=== PATIENT | male | born 1960 | race Caucasian/White ===

== ENCOUNTER → 2024-09-07 15:55 | Outpatient (BNVA) | payer MEDICARE, OTHER, SELFPAY | PROVIDERS: Visit Provider Podiatrist Foot & Ankle Surgery | DX: E11.69 Type 2 diabetes mellitus with other specified complication (principal); L60.0 Ingrowing nail | CPT/HCPCS: 11750; 99203; A6219 ==

== ENCOUNTER → 2024-09-21 15:44 | Outpatient (BNVA) | payer MEDICARE, OTHER, SELFPAY | PROVIDERS: Visit Provider Podiatrist Foot & Ankle Surgery | DX: L60.0 Ingrowing nail (principal); E11.69 Type 2 diabetes mellitus with other specified complication | CPT/HCPCS: 99213 ==

== ENCOUNTER 2024-10-11 10:52 | Outpatient (CLI) | payer MEDICARE, OTHER, SELFPAY | END 2024-10-11 10:53 | disposition home or self-care (01) | LOC: SLEEP 10:56 | PROVIDERS: Visit Provider Nurse Practitioner Family | DX: G47.33 Obstructive sleep apnea (adult) (pediatric) (principal); J98.4 Other disorders of lung | CPT/HCPCS: 94762 ==